=== PATIENT | male | born 1990 | race African-American/Black ===

== ENCOUNTER 2021-09-09 20:48 | Emergency (ER) | payer SELFPAY ==
[~2021-09-09] VITALS: Ht 182.8 cm; Wt 71.0 kg
[2021-09-09] MEDS ORDERED: CEPH500T PO (22:13)
[2021-09-09] MEDS ORDERED: PRD50T PO (22:13)
--- NOTE | 2021-09-09 22:13 | ED General ---
General Chief Complaint: Skin/Wound Problems Stated Complaint: RASH FACE AND NECK Nursing Triage Note: Rash started 2-3 weks ago to face and is now spreading to neck. Thought it was acne at first but cont spreading. c/o of itching. has been exposed to chicken pox and put aloe vera on face Source of Information: Patient Exam Limitations: No Limitations (MEGAN STARKS) History of Present Illness Date Seen by Provider: Sep 09, 2021 Time Seen by Provider: 22:11 Initial Comments Patient is a 31-year-old male presents ED with a rash to his forehead, back. Rash is itchy. Reports red bumps. Does wear a hard hat at work. He states the area feels oily and itchy after sweating for long period of time. Does wear hats daily after work. Denies fever, chills. Has been applying aloe vera without much improvement. Denies headache, dizziness, sore throat, diffuse rash, fever. (MEGAN STARKS) Allergies and Home Medications Patient Home Medication List Home Medication List Reviewed: Yes (MEGAN STARKS) Cephalexin (Cephalexin) 500 Mg Tablet, 500 MG PO QID Prescribed by: RAJINDER ISAACS on 09/09/212212 Prednisone (Prednisone) 50 Mg Tab, 50 MG PO DAILY Prescribed by: RAJINDER ISAACS on 09/09/212212 Review of Systems Review of Systems Constitutional: No chills, No diaphoresis, No dizziness, No fever, No malaise EENTM: No blurred vision, No eye pain, No dental problems Respiratory: No cough, No short of breath, No wheezing Cardiovascular: No edema Gastrointestinal: No abdominal pain, No constipation, No diarrhea Genitourinary: No dysuria, No frequency Musculoskeletal: No back pain, No joint pain Skin: pruritus, rash (MEGAN STARKS) All Other Systems Reviewed Negative Unless Noted: Yes (MEGAN STARKS) Physical Exam Vital Signs Vital Signs - First Documented 09/09/21 21:00 Temp 37.0 Pulse 64 Resp 16 B/P (MAP) 169/109 (129) Pulse Ox 99 O2 Delivery Room Air (LAURA ASHBY MD) Vital Signs Capillary Refill : Less Than 3 Seconds (MEGAN STARKS) Height, Weight, BMI Height: '" Weight: lbs. oz. kg; 21.00 BMI Method: General Appearance: No Apparent Distress, WD/WN HEENT: PERRL/EOMI, TMs Normal, Normal ENT Inspection, Pharynx Normal Neck: Full Range of Motion, Normal Inspection, Non Tender, Supple Respiratory: Chest Non Tender, Lungs Clear, Normal Breath Sounds, No Accessory Muscle Use Cardiovascular: Regular Rate, Rhythm, No Edema, No Gallop, No JVD Gastrointestinal: Normal Bowel Sounds, No Organomegaly, No Pulsatile Mass Skin: Other (Erythematous papular, pustular rash to forehead, back. No surrounding redness, swelling.) (MEGAN STARKS) Progress/Results/Core Measures Suspected Sepsis SIRS Temperature: Pulse: 64 Respiratory Rate: 16 Blood Pressure 169 /109 Mean: 129 (MEGAN STARKS) Results/Orders Vital Signs/I&O 09/09/21 09/09/21 09/09/21 21:00 21:00 22:25 Temp 37.0 37.0 Pulse 64 64 79 Resp 16 16 14 B/P (MAP) 169/109 (129) 169/109 139/81 Pulse Ox 99 99 99 O2 Delivery Room Air Room Air (LAURA ASHBY MD) Vital Signs/I&O Capillary Refill : Less Than 3 Seconds (MEGAN STARKS) Blood Pressure Mean: 129 Departure Communication (Admissions) Patient with erythematous papular pustular rash to the forehead, neck. Patient does wear a hat at work. Possible skin irritation secondary to hat versus dermatitis. Due to the small pustular rash will discharge with antibiotics. Discussed moisturizer cream. Avoid wearing hats as much as possible. Keep the area dry and clean. Patient ports itching. Anti-inflammatories and Benadryl at home. Short burst steroids for the inflammatory process as he states in the past he has taken antibiotics with steroids with improvement. Outpatient f ollow-up. Return precaution were discussed with patient. (MEGAN STARKS) Impression Primary Impression: Rash Disposition: HOME, SELF-CARE Condition: Improved Departure-Patient Inst. Decision time for Depature: 22:12 (MEGAN SATRKS) Referrals: [facility],LOCAL PHYSICIAN (PCP) Primary Care Physician Patient Instructions: Skin Rash ED Scripts Prednisone (Prednisone) 50 Mg Tab 50 MG PO DAILY for 5 Days, #5 TAB Prov: MEGAN STARKS 09/09/21 Cephalexin (Cephalexin) 500 Mg Tablet 500 MG PO QID for 7 Days, #28 TAB Prov: MEGAN STARKS 09/09/21 Work/School Note: Family Work Note, Patient Received Medical Care In the Emergency Department On: Sep 09, 2021 Patient Will Be Able to Return to Work/School On: Sep 13, 2021 Work Release Form Date Seen in the Emergency Department: Sep 09, 2021 Return to Work: Sep 13, 2021 ATTENDING PHYSICIAN NOTE: I was physically present as attending physician in the emergency department during the care of this patient, but I was not directly involved in the decision making or delivery of care for this patient. (LAURA ASHBY MD) MEGAN STARKS Sep 09, 2021 22:13 LAURA ASHBY MD Sep 10, 2021 06:05
[2021-09-09 22:25] VITALS: BP 139/81
== END 2021-09-09 22:25 | disposition home or self-care (01) ==
LOC: ER 20:51
DX: R21 Rash and other nonspecific skin eruption (principal)
CPT/HCPCS: 99281

== ENCOUNTER 2021-09-16 18:37 | Emergency (ER) | payer SELFPAY ==
[~2021-09-16 18:37] MED LIST: CEPH500T PO; PRD50T PO
== END 2021-09-16 19:57 | disposition left against medical advice (07) ==
LOC: EDUNIT# 18:37 → ER 18:40
DX: Z91.14 Patient's other noncompliance with medication regimen (principal)

== ENCOUNTER 2021-09-19 02:02 | Emergency (ER) | payer SELFPAY ==
[~2021-09-19] VITALS: Ht 182.9 cm; Wt 70.3 kg
[2021-09-19] MEDS ORDERED: predniSONE 20 MG TAB PO ONE (02:30)
--- NOTE | 2021-09-19 02:46 | ED Integumentary General ---
General Chief Complaint: Skin/Wound Problems Stated Complaint: RASH ON CHEST & FACE Nursing Triage Note: Pt arrives via POV from home with c/o skin rash/irriation to his forehead, chin, neck, et chest; onset "more than a month." Pt reports hx of eczema; pt has been seen in ED for this before. Pt denies known allergies. Source: patient Exam Limitations: no limitations History of Present Illness Date Seen by Provider: Sep 19, 2021 Time Seen by Provider: 02:26 Initial Comments Here with complaint of skin irritation and rash to his forehead that he has had history of also has some rash on head of the penis which is a little different. He has had problems with the skin on his face for a long time but has not had this issue on the penis previously. He did have steroids and antibiotics about 10 days ago. Denies dysuria. Only sexually active with his . Timing/Duration: getting worse, other (Few days) Severity: mild Location: face, genitalia Possible Cause: no cause identified Associated Symptoms: rash Allergies and Home Medications Allergies Coded Allergies: No Known Drug Allergies (Unverified , 09/19/21) Patient Home Medication List Home Medication List Reviewed: Yes Cephalexin (Cephalexin) 500 Mg Tablet, 500 MG PO QID Prescribed by: RAJINDER ISAACS on 09/09/212212 Prednisone (Prednisone) 50 Mg Tab, 50 MG PO DAILY Prescribed by: RAJINDER ISAACS on 09/09/212212 Review of Systems Review of Systems Constitutional: see HPI; No chills, No fever Respiratory: no symptoms reported Cardiovascular: no symptoms reported Skin: see HPI, change in color, lesions, pruritus, rash Past [id number] Hx Patient Social History Tobacco Use?: No Use of E-Cig and/or Vaping dev: No Substance use?: No Alcohol Use?: No Pt feels they are or have been: No Immunizations Up To Date Influenza Vaccine Up-to-Date: No; Not Current First/Initial COVID19 Vaccinat: none Past Medical History Surgery/Hospitalization HX: none Integumentary: Yes Eczema Family Medical History No Pertinent Family Hx Physical Exam Vital Signs Vital Signs - First Documented 09/19/21 02:15 Temp 36.8 Pulse 88 Resp 18 B/P (MAP) 132/76 (94) Pulse Ox 99 O2 Delivery Room Air Capillary Refill : Less Than 3 Seconds General Appearance: WD/WN, no apparent distress Cardiovascular: regular rate, rhythm, no murmur Respiratory: lungs clear, normal breath sounds Skin: rash, other (Has mild rash to the face but does have raised red bumps and white drainage to the glans of the penis under the foreskin. No other rash noted to the shaft. No lymphadenopathy. Consistent with yeast infection.) Progress/Results/Core Measures Results/Orders My Orders Orders - AUSTIN VAUGHN MD Prednisone Tablet (Deltasone Tablet) (09/19/21 02:30) Vital Signs/I&O 09/19/21 02:15 Temp 36.8 Pulse 88 Resp 18 B/P (MAP) 132/76 (94) Pulse Ox 99 O2 Delivery Room Air Blood Pressure Mean: 94 Progress Progress Note : Progress Note Seen and evaluated. Prednisone 40 mg p.o. Prescription for ketoconazole topical to the penis. I did discuss with him about moisturizer cream to face to minimize dry skin. Discharged home with return precautions. Patient verbalized understanding of instructions and agreement with plan. Departure Impression Primary Impression: Rash Additional Impression: Candidal balanitis Disposition: HOME, SELF-CARE Condition: Stable Departure-Patient Inst. Decision time for Depature: 02:44 Referrals: NO,LOCAL PHYSICIAN (PCP/Family) Primary Care Physician Patient Instructions: Yeast Infection (DC), Skin Rash ED, Balanitis (DC) Add. Discharge Instructions: All discharge instructions reviewed with patient and/or family. Voiced understanding. You may use moisturizing cream to areas of itch to the face. Take medications as directed. Keep affected area on genitals clean and dry except for topical cream. Return for worse pain, swelling, problems going to the bathroom or other concerns as needed. Scripts Hydroxyzine Pamoate (Vistaril) 25 Mg Capsule 25 MG PO Q8H PRN for ITCHING AND RASH, #20 CAP 0 Refills Prov: AUSTIN VAUGHN MD 09/19/21 Prednisone (Prednisone) 20 Mg Tab 40 MG PO DAILY, #8 TAB 0 Refills Prov: AUSTIN VAUGHN MD 09/19/21 Ketoconazole (Ketoconazole) 15 Gm Cream..g. 15 GM TP BID, #15 GM 1 Refill Apply to affected area twice daily until clear Prov: AUSTIN VAUGHN MD 09/19/21 AUSTIN VAUGHN MD Sep 19, 2021 02:46
[2021-09-19] MEDS ORDERED: PRD20T PO (02:49)
[2021-09-19] MEDS ORDERED: KETO15CR2 TP (02:49)
[2021-09-19] MEDS ORDERED: HYDR25CA PO (02:49)
[2021-09-19 03:10] VITALS: BP 132/76
== END 2021-09-19 03:12 | disposition home or self-care (01) ==
LOC: EDUNIT# 02:02 → ER 02:07
DX: R21 Rash and other nonspecific skin eruption (principal); B37.42 Candidal balanitis
CPT/HCPCS: 99283